=== PATIENT | female | born 2000 | race African-American/Black ===

== ENCOUNTER 2021-09-01 08:55 | Emergency (ER) | payer OTHER ==
[2021-09-01 09:04] VITALS: BP 134/74; PULSE 104; TEMP 98.8; BMI 25.0
== END 2021-09-01 12:27 | disposition home or self-care (01) ==
LOC: JER 08:55
DX: R09.81 Nasal congestion (principal)
CPT/HCPCS: 0241U-QW; 87070; 99283-25

== ENCOUNTER 2024-05-27 14:50 | Emergency (ER) | payer OTHER ==
[2024-05-27 15:08] VITALS: BP 137/71; PULSE 95; RESP 20; TEMP 98; BMI 26.4
[2024-05-27] MEDS ORDERED: IBUPROFEN 600 MG TABLET (FP) PO ONE (16:12)
[2024-05-27] MEDS: IBUPROFEN 600 MG TABLET (FP) PO ONE (16:14)
== END 2024-05-27 17:05 | disposition home or self-care (01) ==
LOC: JERFT 14:50
DX: M54.50 Low back pain, unspecified (principal); W01.198A Fall on same level from slipping, tripping and stumbling with subsequent striking against other object, initial encounter
CPT/HCPCS: 72070-TC-FY; 72100-TC-FY; 99283-25